=== PATIENT | male | born 1990 | race Caucasian/White ===

== ENCOUNTER 2024-04-15 02:43 | Emergency (ER) | payer OTHER ==
[~2024-04-15] VITALS: Ht 185.4 cm; Wt 95.3 kg
[2024-04-15] MEDS ORDERED: BENZ-13 PO (04:29)
[2024-04-15] MEDS ORDERED: AZIT250T PO (04:29)
[2024-04-15 04:37] VITALS: BP 124/78; TEMP 98.5; O2SAT 99
== END 2024-04-15 04:38 | disposition home or self-care (01) ==
LOC: ER 03:05
DX: J40 Bronchitis, not specified as acute or chronic (principal); R06.02 Shortness of breath; Z20.822 Contact with and (suspected) exposure to COVID-19
CPT/HCPCS: 71045-TC